=== PATIENT | male | born 1965 | race Caucasian/White ===

== ENCOUNTER 2021-12-09 09:38 | Emergency (ER) | payer OTHER ==
[2021-12-09 10:32] LABS: BASOPHIL 0.4 % (0-2); EOSINOPHIL 0.5 % (0-5); HCT 49.5 % (42.0-52.0); HGB 17.4 g/dl (13.2-18.0); LYMPHOCYTE 30.4 % (15-48); MCH 29.9 pg (25.0-31.0); MCHC 35.2 g/dL (32.0-36.0); MCV 85.2 fL (78.0-100.0); MPV 10.3 fL (6.0-9.5); NEUTROPHIL 56.5 % (41-80); NRBC 0; PLT 231 K/uL (150-400); RBC 5.81 M/uL (4.70-6.00); RDW 12.6 % (11.5-14.0); WBC 5.5 K/uL (4.0-10.5)
[2021-12-09 10:35] LABS: INR 0.94 (0.9-1.2)
[2021-12-09 10:42] LABS: BILIRUBIN NEGATIVE (NEGATIVE); BLOOD NEGATIVE Ery/uL (NEGATIVE); CLARITY CLEAR (CLEAR); COLOR YELLOW (YELLOW); GLUCOSE (U) 1+ mg/dL (NORMAL); LEUKOCYTES NEGATIVE Leu/uL (NEGATIVE); NITRITE NEGATIVE (NEGATIVE); PROTEIN NEGATIVE (NEGATIVE); UROBILINOGEN 0.2 mg/dL (0.2-1.0)
[2021-12-09 10:46] LABS: ALBUMIN 3.7 g/dL (3.4-5.0); BILIRUBIN - TOTAL 0.6 mg/dL (0.2-1.0); CREATININE 0.77 mg/dL (0.67-1.17); GLOBULIN (CALCULATION) 3.6 g/dL; POTASSIUM 4.5 mmol/L (3.5-5.1); TOTAL PROTEIN 7.3 g/dL (6.4-8.2)
== END 2021-12-09 12:07 | disposition home or self-care (01) ==
LOC: FER 09:38
PROVIDERS: Emergency Medicine
DX: R42 Dizziness and giddiness (principal); R07.89 Other chest pain; I10 Essential (primary) hypertension; E11.9 Type 2 diabetes mellitus without complications
CPT/HCPCS: 36415; 70450; 71046; 80053; 81003; 84443; 84484; 85025; 85610; 85730; 93005